=== PATIENT | female | born 1970 | race Caucasian/White ===

== ENCOUNTER 2017-07-16 17:51 | Emergency (ER) | payer OTHER ==
[~2017-07-16 17:51] MED LIST: FER300 PO; HCTZ/LISINOPRIL1 TA1 PO; LAC PO; LEVAQUIN750 MG PO; MOTRIN800 MG PO; NORCO1 TA2 PO; VITAMIN C500 MG PO; ZOF4 PO
[2017-07-16 19:39] VITALS: BP 137/75
== END 2017-07-16 19:39 | disposition home or self-care (01) ==
LOC: ED 17:51
DX: K59.00 Constipation, unspecified (principal); I10 Essential (primary) hypertension; Z90.710 Acquired absence of both cervix and uterus
CPT/HCPCS: J1885

== ENCOUNTER 2017-09-27 11:04 | Emergency (ER) | payer OTHER ==
[~2017-09-27] VITALS: Ht 160 cm; Wt 59.0 kg
[2017-09-27 11:19] VITALS: Ht 160 cm; Wt 59.0 kg
[2017-09-27 11:59] LABS: BASOPHIL % 0.7 % (0-2); PLATELET COUNT 346 x10^3mcL (130-400); RED CELL DISTRIBUTION WIDTH 14.9 % (11.5-14.5)
[2017-09-27 12:19] LABS: CALCIUM 8.8 mg/dL (8.5-10.1); CARBON DIOXIDE 24.9 mmol/L (21-32); CHLORIDE SERUM 97 mmol/L (98-107); CREATININE SERUM 0.9 mg/dL (0.6-1.0); GFR1 > 60 mL/min; GLUCOSE SERUM 138 mg/dL (74-106); POTASSIUM SERUM 3.4 mmol/L (3.5-5.1); SODIUM SERUM 136 mmol/L (136-145)
[2017-09-27 12:30] LABS: ALBUMIN 3.9 g/dL (3.4-5.0); ALKALINE PHOSPHATASE 80 U/L (46-116); ALT/SGPT 48 U/L (14-59); AMYLASE 55 U/L (25-115); AST/SGOT 24 U/L (15-37); BILIRUBIN TOTAL 0.5 mg/dL (0.20-1.00); LIPASE 95 IU/L (73-393); MAGNESIUM 1.7 mg/dL (1.8-2.4); T4(THYROXINE) 10.9 ug/dL (4.7-13.3)
[2017-09-27 12:33] LABS: CHOLESTEROL 212 mg/dL (<200); HDL CHOLESTEROL 131 mg/dL (40-60); TOTAL PROTEIN, SERUM 8.5 g/dL (6.4-8.2)
[2017-09-27 13:20] LABS: UA SPECIFIC GRAVITY 1.025 (1.005-1.035); microscopic required? YES; urine erythrocyte NEGATIVE (NEGATIVE)
[2017-09-27 13:34] LABS: AMPHETAMINE QUAL UR POSITIVE (NEG <=1000)
[2017-09-27 15:52] VITALS: BP 146/85
== END 2017-09-27 15:52 | disposition home or self-care (01) ==
LOC: ED 11:04
PROVIDERS: Emergency Medicine
DX: I10 Essential (primary) hypertension (principal); E87.6 Hypokalemia; F15.90 Other stimulant use, unspecified, uncomplicated
CPT/HCPCS: 82962; 83880; G0480; J3490; J7030; Q0092